=== PATIENT | male | born 1985 | race Caucasian/White ===

== ENCOUNTER 2017-11-30 22:58 | Inpatient (IN) | payer BC ==
[2017-12-01] MEDS: ONDANSETRON 4 MG INJ IV ×2 (00:14→01:03)
[2017-12-01] MEDS: HYDROmorphONE 1 MG/ML SYG IV ×2 (00:15→01:23)
[2017-12-01] MEDS: SOD CHLORIDE 0.9% 500 ML IV (00:21)
[2017-12-01 00:36] LABS: ADD MAN DIFF? NO
[2017-12-01 00:38] LABS: WHITE BLOOD COUNT 14.5 10^3/ul (4.8-10.8)
[2017-12-01 00:38] LABS: BASOPHIL # 0.1 10^3/ul (0.0-0.1); BASOPHILS % 0.3 % (0.0-2.0); EOSINOPHILS # 0.1 10^3/ul (0.0-0.5); EOSINOPHILS % 0.8 % (0.0-7.0); HEMATOCRIT 45.4 % (42.0-52.0); HEMOGLOBIN 15.3 g/dl (14.0-18.0); LYMPHOCYTES # 2.6 10^3/ul (0.8-2.9); LYMPHOCYTES % 17.6 % (15.0-51.0); MEAN CORPUSCULAR HGB CONC 33.7 g/dl (32.0-37.0); MONOCYTE # 0.9 10^3/ul (0.3-0.9); MONOCYTES % 6.1 % (0.0-11.0); NEUTROPHIL # 10.8 10^3/ul (1.6-7.5); NEUTROPHILS % 74.6 % (39.0-77.0); PLATELET COUNT 304 10^3/UL (140-415); RED BLOOD COUNT 5.28 10^6/ul (4.70-6.10)
[2017-12-01 01:01] LABS: ALANINE AMINOTRANSFERASE 74 IU/L (13-69); ALBUMIN 4.7 g/dl (3.3-4.9); ALKALINE PHOSPHATASE 103 IU/L (42-121); ANION GAP 20 (8-16); ASPARTATE AMINO TRANSFERASE 32 IU/L (15-46); BILIRUBIN,INDIRECT 0.9 mg/dl (0-1.1); BILIRUBIN,TOTAL 0.9 mg/dl (0.2-1.3); BLOOD UREA NITROGEN 21 mg/dl (7-20); CALCIUM 9.8 mg/dl (8.4-10.2); CARBON DIOXIDE 28 mmol/L (21-31); CHLORIDE 99 mmol/L (97-110); CREATININE 1.03 mg/dl (0.61-1.24); GLUCOSE 137 mg/dl (70-220); LIPASE 79 U/L (23-300); POTASSIUM 3.6 mmol/L (3.5-5.1); SODIUM 143 mmol/L (135-144); TOTAL PROTEIN 8.3 g/dl (6.1-8.1)
[2017-12-01] MEDS: PIPER-TAZO 3.375 GM IV (PMX) 100 ML IVPB (01:17)
[2017-12-01 01:18] LABS: INR 0.91; PARTIAL THROMBOPLASTIN TIME 29.5 Sec (25.0-35.0); PROTIME 12.3 Sec (11.9-14.9)
[2017-12-01] MEDS ORDERED: ACETAMINOPHEN 325 MG TAB PO (01:30)
[2017-12-01] MEDS ORDERED: ONDANSETRON 4 MG INJ IV ×2 (01:30→02:00)
[2017-12-01] MEDS: D5W-0.45 NACL + KCL 20 MEQ 1,000 ML IV ×2 (02:10→12:26)
[2017-12-01] MEDS: morphine 2 MG INJ IV ×4 (02:15→17:19)
[2017-12-01] MEDS: PANTOPRAZOLE 40 MG INJ IV (05:42)
[2017-12-01 06:52] LABS: ADD MAN DIFF? NO
[2017-12-01 07:00] LABS: BASOPHILS % 0.2 % (0.0-2.0); EOSINOPHILS % 0.2 % (0.0-7.0); HEMATOCRIT 42.4 % (42.0-52.0); HEMOGLOBIN 14.1 g/dl (14.0-18.0); LYMPHOCYTES # 1.8 10^3/ul (0.8-2.9); LYMPHOCYTES % 14.7 % (15.0-51.0); MEAN CORPUSCULAR HEMOGLOBIN 29.1 pg (29.0-33.0); MEAN CORPUSCULAR HGB CONC 33.3 g/dl (32.0-37.0); MEAN CORPUSCULAR VOLUME 87.6 fl (82.0-101.0); MEAN PLATELET VOLUME 9.9 fl (7.4-10.4); MONOCYTE # 0.8 10^3/ul (0.3-0.9); MONOCYTES % 6.4 % (0.0-11.0); NEUTROPHIL # 9.4 10^3/ul (1.6-7.5); NEUTROPHILS % 78.1 % (39.0-77.0); PLATELET COUNT 250 10^3/UL (140-415); RED BLOOD COUNT 4.84 10^6/ul (4.70-6.10); RED CELL DISTRIBUTION WIDTH 11.9 % (11.5-14.5)
[2017-12-01 07:00] LABS: WHITE BLOOD COUNT 12.1 10^3/ul (4.8-10.8)
[2017-12-01 07:16] LABS: ALANINE AMINOTRANSFERASE 67 IU/L (13-69); ALBUMIN 3.9 g/dl (3.3-4.9); ALKALINE PHOSPHATASE 76 IU/L (42-121); ANION GAP 16 (8-16); ASPARTATE AMINO TRANSFERASE 32 IU/L (15-46); BILIRUBIN,INDIRECT 0.9 mg/dl (0-1.1); BILIRUBIN,TOTAL 0.9 mg/dl (0.2-1.3); BLOOD UREA NITROGEN 17 mg/dl (7-20); CALCIUM 8.8 mg/dl (8.4-10.2); CARBON DIOXIDE 28 mmol/L (21-31); CHLORIDE 104 mmol/L (97-110); CREATININE 0.91 mg/dl (0.61-1.24); GLUCOSE 149 mg/dl (70-220); POTASSIUM 4.1 mmol/L (3.5-5.1); SODIUM 144 mmol/L (135-144); TOTAL PROTEIN 6.9 g/dl (6.1-8.1)
[2017-12-01 14:06] LABS: CHOL/HDL RATIO 6.6 RATIO; HDL CHOLESTEROL 29 mg/dl (28-63); LDL CHOLESTEROL,CALCULATED 152 mg/dl; TRIGLYCERIDES 60 mg/dl (0-149)
[2017-12-01 14:06] LABS: CHOLESTEROL 193 mg/dl (100-200)
== END 2017-12-01 19:10 | disposition short-term general hospital (02) | DRG 446 ==
LOC: MS2 12-01 01:06 → E/R 22:58
DX: K80.20 Calculus of gallbladder without cholecystitis without obstruction (principal); E66.9 Obesity, unspecified; Z68.30 Body mass index [BMI] 30.0-30.9, adult
CPT/HCPCS: 36415; 71045; 76705; 80053; 80061; 83690; 85025; 85610; 85730; 93005; 96361; 96365; 96375; 96376; 99285-25